=== PATIENT | male | born 1995 | race Caucasian/White ===

== ENCOUNTER 2017-03-15 14:43 | Emergency (ER) | payer OTHER ==
[2017-03-15 14:50] VITALS: RESP 16; O2SAT 95
[2017-03-15] MEDS ORDERED: HYDROmorphONE/DILAUDID 1 MG/ML INJ IVP ONE (15:07)
--- NOTE | 2017-03-15 15:10 | EDPHY ---
H & P Stated Complaint: Swelling LLE medial aspect x several wks;sent from [facility] for ? [place] Time Seen by Provider: 03/15/17 14:59 HPI/ROS: CHIEF COMPLAINT: Swelling left leg HISTORY OF PRESENT ILLNESS: The patient is a 21-year-old man who comes to the emergency department complaining of a painful lump in the medial aspect of his left lower leg near the just above his ankle. The patient has the had this present for about a week. It is tender to palpation. It is not been erythematous or warm. He has not had a fever. He denies injections or abrasions or wounds. He denies any traumatic injury. He [facility] today who performed an x-ray that was reportedly negative and he was then transferred here for an ultrasound to rule out DVT. The he does not have any risk factors for DVT. No recent travel. No smoking. No recent procedures or hormone therapy. REVIEW OF SYSTEMS: Constitutional: denies: chills, fever, recent illness, recent injury EENTM: denies: blurred vision, double vision, nose congestion Respiratory: denies: cough, shortness of breath Cardiac: denies: chest pain, irregular heart rate, lightheadedness, palpitations Gastrointestinal/Abdominal: denies: abdominal pain, diarrhea, nausea, vomiting, blood streaked stools Genitourinary: denies: dysuria, frequency, hematuria, pain Musculoskeletal: denies: joint pain, muscle pain Skin: See HPI Neurological: denies: headache, numbness, paresthesia, tingling, dizziness, weakness Hematologic/Lymphatic: denies: blood clots, easy bleeding, easy bruising Immunologic/allergic: denies: HIV/AIDS, transplant EXAM: GENERAL: Well-appearing, well-nourished and in no acute distress. HEAD: Atraumatic, normocephalic. EYES: Pupils equal round and reactive to light, extraocular movements intact, sclera anicteric, conjunctiva are normal. ENT: TMs normal, nares patent, oropharynx clear without exudates. Moist mucous membranes. NECK: Normal range of motion, supple without lymphadenopathy or JVD. LUNGS: Breath sounds clear to auscultation bilaterally and equal. No wheezes rales or rhonchi. HEART: Regular rate and rhythm without murmurs, rubs or gallops. ABDOMEN: Soft, nontender, normoactive bowel sounds. No guarding, no rebound. No masses appreciated. BACK: No CVA tenderness, no spinal tenderness, step-offs or deformities EXTREMITIES: Normal range of motion, no pitting or edema. No clubbing or cyanosis. NEUROLOGICAL: Cranial nerves II through XII grossly intact. Normal speech, normal gait. 5/5 strength, normal movement in all extremities, normal sensation PSYCH: Normal mood, normal affect. SKIN: Painful swollen lump to left lower extremity medially just above the ankle. Feels superficial in fluctuant. Feels similar to an abscess however it is not erythematous or warm. Source: Patient Exam Limitations: No limitations - Personal History Current Tetanus Diphtheria and Acellular Pertussis (TDAP): Yes - Medical/Surgical History Hx Asthma: No Hx Chronic Respiratory Disease: No Hx Diabetes: No Hx Cardiac Disease: No Hx Renal Disease: No Hx Cirrhosis: No Other PMH: neg - Family History Significant Family History: No pertinent family hx - Social History Smoking Status: Never smoked Alcohol Use: Sober Drug Use: None Constitutional: Initial Vital Signs Temperature (C) 37 C 03/15/17 14:45 Heart Rate 96 03/15/17 14:45 Respiratory Rate 16 03/15/17 14:45 Blood Pressure 111/74 03/15/17 14:45 O2 Sat (%) 95 03/15/17 14:45 O2 Delivery Mode Room Air Allergies/Adverse Reactions: No Known Allergies Allergy (Unverified 03/15/17 14:48) Home Medications: Medication Instructions Recorded NK [No Known Home Meds] 03/15/17 Medical Decision Making - Diagnostics Imaging Results: Imaging Impressions Extremity Venous Study 03/15/17 15:07 Impression: 1. There is no sonographic evidence of deep or superficial vein thrombosis in the left lower extremity. 2. Corresponding to the area of palpable concern, there is a complex avascular fluid collection measuring up to 6.6 cm in diameter. Clinical correlation and follow-up to assure resolution are recommended. 3. Mild left groin lymphadenitis. Findings were discussed with SIN CHOW MD at 15:57, on 03/15/2017. Imaging: Discussed imaging studies w/ stopper grinder Radiologist ED Course/Re-evaluation: 4:15 p.m. we discussed the lab and imaging results which are overall reassuring. His lab work and exam were consistent with hematoma other than the fact it is so tender to palpation. The patient does not remember any trauma. At this point we discussed the options which include treating conservatively for what is likely hematoma verses attempting to I and D to see if there is any infection but possibly causing a sterile hematoma to become an infected hematoma. At this point the patient would prefer to wait and treat conservatively. He was wrapped with an Cornelio bandage and feels that this helps. He declines further workup or testing at this time. We discussed indications for returning. Differential Diagnosis: Partial list of the Differential diagnosis considered include but were not limited to; hematoma, abscess and although unlikely based on the history and physical exam, I also considered DVT, vascular injury, nerve injury, fracture. I discussed these differential diagnoses and the plan with the patient as well as the usual and expected course. The patient understands that the diagnosis is provisional and that in medicine we are not always correct and that further workup is often warranted. Usual and customary warnings were given. All of the patient's questions were answered. The patient was instructed to return to the emergency department should the symptoms at all worsen or return, otherwise to followup with the physician as we discussed. - Data Points Laboratory Results: Laboratory Results 03/15/17 15:21 03/15/17 15:21 03/15/17 03/15/17 03/15/17 15:21 15:21 15:21 WBC 8.98 10^3/uL 10^3/uL (3.80-9.50) RBC 5.38 10^6/uL 10^6/uL (4.40-6.38) Hgb 16.5 g/dL g/dL (13.7-17.5) Hct 45.8 % % (40.0-51.0) MCV 85.1 fL fL (81.5-99.8) MCH 30.7 pg pg (27.9-34.1) MCHC 36.0 g/dL g/dL (32.4-36.7) RDW 12.2 % % (11.5-15.2) Plt Count 383 10^3/uL 10^3/uL (150-400) MPV 8.4 fL L fL (8.7-11.7) Neut % (Auto) 70.9 % % (39.3-74.2) Lymph % (Auto) 15.5 % % (15.0-45.0) Garrard % (Auto) 8.7 % % (4.5-13.0) Eos % (Auto) 3.2 % % (0.6-7.6) Baso % (Auto) 0.4 % % (0.3-1.7) Nucleat RBC Rel Count 0.0 % % (0.0-0.2) Absolute Neuts (auto) 6.36 10^3/uL 10^3/uL (1.70-6.50) Absolute Lymphs (auto) 1.39 10^3/uL 10^3/uL (1.00-3.00) Absolute Monos (auto) 0.78 10^3/uL 10^3/uL (0.30-0.80) Absolute Eos (auto) 0.29 10^3/uL 10^3/uL (0.03-0.40) Absolute Basos (auto) 0.04 10^3/uL 10^3/uL (0.02-0.10) Absolute Nucleated RBC 0.00 10^3/uL 10^3/uL (0-0.01) Immature Gran % 1.3 % H % (0.0-1.1) Immature Gran # 0.12 10^3/uL H 10^3/uL (0.00-0.10) PT 14.3 SEC SEC (12.0-15.0) INR 1.09 (0.83-1.16) APTT 27.1 SEC SEC (23.0-38.0) Sodium 142 mEq/L mEq/L (134-144) Potassium 4.6 mEq/L mEq/L (3.5-5.2) Chloride 104 mEq/L mEq/L (97-110) Carbon Dioxide 22 mEq/l mEq/l (22-31) Anion Gap 16 mEq/L mEq/L (8-16) BUN 8 mg/dL mg/dL (7-23) Creatinine 0.8 mg/dL mg/dL (0.7-1.3) Estimated GFR > 60 Glucose 81 mg/dL mg/dL (70-100) Calcium 10.1 mg/dL mg/dL (8.5-10.4) Medications Given: Discontinued Medications Hydromorphone HCl (Dilaudid) 1 mg IVP EDNOW ONE Stop: 03/15/17 15:08 Last Admin: 03/15/17 15:29 Dose: 1 mg Departure - Departure Disposition: Home, Routine, Self-Care Clinical Impression: Hematoma Condition: Fair Instructions: Hematoma (ED) Referrals: NONE *PRIMARY CARE P,. [Primary Care Provider] - As per Instructions [facility],. [Clinic] - As per Instructions
[2017-03-15 15:30] LABS: % IMMATURE GRANULYOCYTES 1.3 % (0.0-1.1); ABSOLUTE IMMATURE GRANULOCYTES 0.12 10^3/uL (0.00-0.10); ADD DIFF? NO; ADD MORPH? NO; ADD SCAN? NO; ATYPICAL LYMPHOCYTE FLAG 40 (0-99); FRAGMENT RBC FLAG 0 (0-99); HEMATOCRIT 45.8 % (40.0-51.0); HEMOGLOBIN 16.5 g/dL (13.7-17.5); LEFT SHIFT FLG 10 (0-99); LIPEMIA HEMOLYSIS FLAG 90 (0-99); MEAN CELL HEMOGLOBIN 30.7 pg (27.9-34.1); MEAN CELL VOLUME 85.1 fL (81.5-99.8); MEAN PLATELET VOLUME 8.4 fL (8.7-11.7); PLATELET CLUMPS FLAG 0 (0-99); PLATELET COUNT 383 10^3/uL (150-400); RED BLOOD CELL COUNT 5.38 10^6/uL (4.40-6.38); RED CELL DISTRIBUTION WIDTH 12.2 % (11.5-15.2)
[2017-03-15 15:37] LABS: INR 1.09 (0.83-1.16); PROTIME(PATIENT) 14.3 SEC (12.0-15.0)
[2017-03-15 15:38] LABS: APTT 27.1 SEC (23.0-38.0)
[2017-03-15 15:45] LABS: ANION GAP 16 mEq/L (8-16); CALCIUM 10.1 mg/dL (8.5-10.4); CARBON DIOXIDE 22 mEq/l (22-31); CHLORIDE 104 mEq/L (97-110); CREATININE 0.8 mg/dL (0.7-1.3); GLOMERULAR FILTRATION RATE > 60; GLUCOSE 81 mg/dL (70-100); POTASSIUM 4.6 mEq/L (3.5-5.2); SODIUM 142 mEq/L (134-144)
[2017-03-15 16:28] VITALS: BP 124/87; PULSE 88; TEMP 98.2
== END 2017-03-15 16:26 | disposition home or self-care (01) ==
DX: M79.81 Nontraumatic hematoma of soft tissue (principal)
CPT/HCPCS: 96374; J1170

== ENCOUNTER 2017-11-26 20:18 | Emergency (ER) | payer OTHER ==
[2017-11-26 20:25] VITALS: BP 121/76
[2017-11-26] MEDS ORDERED: TRANEXAMIC ACID 1,000 MG/10 ML VIAL TP ONE (20:43)
[2017-11-26] MEDS ORDERED: TRANEXAMIC ACID 1,000 MG/10 ML VIAL ONE (20:44)
--- NOTE | 2017-11-26 20:47 | EDPHY ---
H & P Time Seen by Provider: 11/26/17 20:34 HPI/ROS: CHIEF COMPLAINT: Odontalgia, bleeding from tooth extraction site HISTORY OF PRESENT ILLNESS: 22-year-old male 3 weeks post 3rd molar extraction of bilateral maxillary and mandibular 3rd molar in [place], complaining of continued bilateral TMJ pain reproducible with talking, [id number], mastication as well as continued bleeding from the left mandibular 3rd molar extraction site. Denies: Lightheadedness, chest pain, nausea, vomiting, change in voice, nuchal rigidity, flu-like symptoms, fever, chills. PRIMARY CARE PROVIDER: REVIEW OF SYSTEMS: 10 systems reviewed and negative with the exception of the elements mentioned in the history of present illness PAST MEDICAL & SURGICAL HISTORY: 3 weeks post 3rd molar extraction performed in [place]. SOCIAL HISTORY: [employer] Student PHYSICAL EXAM (Prior to examination, patient consented to physical exam, hands were washed and my usual and customary physical exam procedures followed) 1) GENERAL: Well-developed, well-nourished, alert and oriented. Appears uncomfortable, appears anxious 2) HEAD: Normocephalic, atraumatic 3) HEENT: Pupils equal, round, reactive to light bilaterally. Sclera anicteric. Symmetrical faces. Nasolabial fold symmetrical. Nasopharynx, oropharynx, clear, no lesions. Moist Mucous membranes. Tender to percussion at 3rd molar extraction site with slow bleeding from the left maxillary site otherwise no bleeding. Ears bilaterally with normal tympanic membranes. 4) NECK: Full range of motion, no meningeal signs. Submental and submandibular spaces are soft no induration no adenopathy, No tenderness. 5) LUNGS: Clear auscultation bilaterally, no wheezes, no rhonchi, no retractions. 6) HEART: Regular rate and rhythm, no murmur, no heave, no gallop. 7) ABDOMEN: No guarding, no rebound, no focal tenderness, negative McBurney's, negative Cochran's, negative Rovsing's, negative peritoneal sign, 8) MUSCULOSKELETAL: Moving all extremities, no focal areas of tenderness, no obvious trauma. No peripheral edema or discoloration. 9) BACK: No CVA tenderness, no midline vertebral tenderness, no fluctuance, no step-off, no obvious trauma, no visual or palpable abnormality. 10) SKIN: No rash, no petechiae. 11) Psychiatric: Patient is oriented X 3, there is no agitation. DIFFERENTIAL DIAGNOSIS: In no particular order including but not limited to dry socket, post surgical/extraction bleeding, abscess, deep space infection, Ludwigs Angina. Smoking Status: Never smoked Constitutional: Initial Vital Signs Temperature (C) 36.6 C 11/26/17 20:22 Heart Rate 128 H 11/26/17 20:22 Respiratory Rate 18 11/26/17 20:22 Blood Pressure 121/76 H 11/26/17 20:22 O2 Sat (%) 95 11/26/17 20:22 O2 Delivery Mode Room Air Allergies/Adverse Reactions: No Known Allergies Allergy (Unverified 11/26/17 20:21) Home Medications: Medication Instructions Recorded NK [No Known Home Meds] 03/15/17 MDM/Departure - MDM Medications Given: Discontinued Medications Hydrocodone Bitart/Acetaminophen (Hol[place]el 5/325mg Prepack#6) 1 btl TAKEHOME EDNOW ONE Stop: 11/26/17 21:28 Last Admin: 11/26/17 21:30 Dose: 1 btl Hydrocodone Bitart/Acetaminophen ([place] 5/325) 1 tab PO EDNOW ONE Stop: 11/26/17 21:32 Last Admin: 11/26/17 21:31 Dose: 1 tab Tranexamic Acid (Cyklokapron) 500 mg TP EDNOW ONE Stop: 11/26/17 20:44 Last Admin: 11/26/17 20:48 Dose: 500 mg ED Course/Re-evaluation: 8:47 p.m.: At this time, doubt deep space infection, abscess, Raffaele's angina as he has no clinical exam findings consistent with this. Will place topical TXA on his left mandibular 3rd molar extraction site and re-evaluated. I saw this patient independently based on established practice protocols. Care of patient under supervision of secondary supervising physician Dr Davila. 9:34 p.m.: Re-evaluation. Hemostatic post TXA. Given patient Holmdel both in the ER and tablets to go home with. I have recommended he either contact his oral surgeon in [place] or follow up with oral surgeon hydro electric station operator, Dr. Lopez Oscar. At this time I do not think that imaging studies are indicated. He feels comfortable being discharged. My usual and customary dental precautions instructions provided. - Depart Disposition: Home, Routine, Self-Care Clinical Impression: Dry tooth socket History of tooth extraction Qualifiers: Tooth loss class: unspecified tooth loss Qualified Code(s): K08.409 - Partial loss of teeth, unspecified cause, unspecified class Condition: Good Instructions: Dry Socket (ED), Tooth Extraction (DC) Additional Instructions: Return to the ER immediately if you cannot swallow, have drooling, fevers, neck stiffness, cannot open your jaw, or any other symptoms that concern you. Recommend you follow up with a local oral surgeon. Take the pain medication we gave you as directed Referrals: Lopez Oscar DDS [Doctor of Dental Surgery] - As per Instructions
[2017-11-26] MEDS ORDERED: HYDROCODONE/APAP 5/325 TAB ONE (21:27)
[2017-11-26] MEDS ORDERED: HYDROCOD/APAP 5/325 PREPACK#6 BTL TAKEHOME ONE ×2 (21:27)
[2017-11-26] MEDS ORDERED: HYDROCODONE/APAP 5/325 TAB PO ONE (21:31)
== END 2017-11-26 21:54 | disposition home or self-care (01) ==
DX: K91.840 Postprocedural hemorrhage of a digestive system organ or structure following a digestive system procedure (principal)

== ENCOUNTER 2017-11-27 13:08 | Emergency (ER) | payer OTHER ==
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
[2017-11-27] MEDS ORDERED: fentaNYL 100 MCG/2 ML INJ IVP ONE (13:44)
[2017-11-27] MEDS ORDERED: NS 1,000 ML IV ONE (13:44)
[2017-11-27 15:06] VITALS: BP 110/70
--- NOTE | 2017-11-27 15:45 | ASMTCMCOM ---
CM Note CM Note Notes: Met with patient prior to D/c from ER to confirm follow up with Dr. Dayne CANADA on December 02. Patient provided contact information and instructed to call Wednesday. ER report faxed to Dr. Oscar Date Signed: 11/27/2017 03:45 PM Electronically Signed By:Sydney Steen RN
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
== END 2017-11-27 15:08 | disposition home or self-care (01) ==
DX: S02.652A Fracture of angle of left mandible, initial encounter for closed fracture (principal); S02.601A Fracture of unspecified part of body of right mandible, initial encounter for closed fracture; Y04.0XXA Assault by unarmed brawl or fight, initial encounter
CPT/HCPCS: J3010

== ENCOUNTER → 2017-12-28 | Outpatient (CLI) | payer OTHER ==
[~2017-12-28] MED LIST: GADOBUTROL 10 ML VIAL IVP ONE
== END ==
LOC: FIMAGING 16:18
DX: C84.70 Anaplastic large cell lymphoma, ALK-negative, unspecified site (principal)
CPT/HCPCS: A9585

== ENCOUNTER 2018-02-03 14:53 | Emergency (ER) | payer OTHER ==
[2018-02-03 15:11] VITALS: BP 96/81
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
== END 2018-02-03 16:00 | disposition home or self-care (01) ==
DX: S00.83XA Contusion of other part of head, initial encounter (principal); R20.2 Paresthesia of skin; Y04.8XXA Assault by other bodily force, initial encounter; F17.200 Nicotine dependence, unspecified, uncomplicated

== ENCOUNTER 2018-06-04 17:26 | Emergency (ER) | payer OTHER ==
[2018-06-04 17:56] VITALS: BP 135/74
[2018-06-04] MEDS ORDERED: ACETAMINOPHEN 325 MG TAB PO ONE (19:22)
--- NOTE | 2018-06-04 19:39 | EDPHY ---
H & P Stated Complaint: cough headache Time Seen by Provider: 06/04/18 19:22 HPI/ROS: CHIEF COMPLAINT: Cough, fever HISTORY OF PRESENT ILLNESS: 22-year-old male with a history of lymphoma presents with cough and fever. Onset cough, sore throat and runny nose 1 week ago. Fever started yesterday, associated with worsening cough and streaks of blood in cough. Also has purulent drainage from nose and sinus pressure. Vomiting yesterday. No nausea or vomiting today. No shortness of breath. REVIEW OF SYSTEMS: complete 10 point ROS reviewed and is negative except for the noted elements in the HPI - Medical/Surgical History Hx Asthma: No Hx Chronic Respiratory Disease: No Hx Diabetes: No Hx Cardiac Disease: No Hx Renal Disease: No Hx Cirrhosis: No Hx Alcoholism: No Hx HIV/AIDS: No Hx Splenectomy or Spleen Trauma: No Other PMH: LLE Lymphoma, s/p chemo 2018. Appendectomy - Social History Smoking Status: Current some day smoker Alcohol Use: Sober - Physical Exam Exam: General Appearance: Alert, pleasant Eyes: Pupils equal and round, no conjunctival pallor or injection ENT, Mouth: Mucous membranes moist Neck: Normal inspection Respiratory: Lungs are clear to auscultation, no wheezing Cardiovascular: Regular rate and rhythm Neurological: A&O, nonfocal, normal gait Skin: Warm and dry, no rash Extremities: Normal inspection Psychiatric: Mood and affect normal Constitutional: Initial Vital Signs Temperature (C) 37.1 C 06/04/18 17:54 Heart Rate 101 H 06/04/18 17:54 Respiratory Rate 18 06/04/18 17:54 Blood Pressure 135/74 H 06/04/18 17:54 O2 Sat (%) 95 06/04/18 17:54 O2 Delivery Mode Room Air Allergies/Adverse Reactions: No Known Allergies Allergy (Verified 06/04/18 17:52) Home Medications: Medication Instructions Recorded Azithromycin [Zithromax] 250 mg PO DAILY #6 tab 06/04/18 Ondansetron Odt [Zofran Odt 4 mg 4 mg PO Q4 PRN #6 tab 06/04/18 (*)] Medical Decision Making ED Course/Re-evaluation: This patient presents with fever and cough. d/w pt CXR, declines, will f/u if worse. Rx Zithromax for possible pneumonia. Differential Diagnosis: Differential diagnosis includes but is not limited to pneumonia, otitis media, peritonsillar abscess, retropharyngeal abscess, meningitis. - Data Points Medications Given: Discontinued Medications Acetaminophen (Tylenol) 650 mg PO EDNOW ONE Stop: 06/04/18 19:23 Last Admin: 06/04/18 19:37 Dose: 650 mg Departure - Departure Disposition: Home, Routine, Self-Care Clinical Impression: Acute bronchitis Qualifiers: Bronchitis organism: unspecified organism Qualified Code(s): J20.9 - Acute bronchitis, unspecified Condition: Good Instructions: Acute Bronchitis (ED) Additional Instructions: Drink plenty of fluids. Ibuprofen 600 mg 3 times daily while the fever persists. Take Robitussin or Delsym as needed for cough. Return for worsening symptoms or any concerns. Referrals: Christiano Martin MD [Medical Doctor] - As per Instructions Stand Alone Forms: School Excuse, Statement of Treatment, Work Excuse Prescriptions: Azithromycin [Zithromax] 250 mg PO DAILY #6 tab Ondansetron Odt [Zofran Odt 4 mg (*)] 4 mg PO Q4 PRN #6 tab PRN Reason: Nausea
== END 2018-06-04 19:57 | disposition home or self-care (01) ==
DX: J20.9 Acute bronchitis, unspecified (principal); C85.90 Non-Hodgkin lymphoma, unspecified, unspecified site

== ENCOUNTER → 2018-07-18 | Outpatient (CLI) | payer OTHER | LOC: FIMAGING 15:14 | DX: C84.7 Anaplastic large cell lymphoma, ALK-negative (principal); Z98.890 Other specified postprocedural states | CPT/HCPCS: A9585 ==